=== PATIENT | female | born 1980 | race Caucasian/White ===

== ENCOUNTER 2017-03-22 01:35 | Emergency (ER) | payer MEDICAID, OTHER ==
[~2017-03-22] VITALS: Ht 162.6 cm; Wt 65.0 kg
[~2017-03-22 01:35] MED LIST: ACET500C5 PO; CEPH-443 PO; HYDR-3498 PO; IBUP-1542 PO
[2017-03-22 01:44] VITALS: Ht 162.6 cm; Wt 65.0 kg
[2017-03-22 02:09] LABS: URINE BLOOD (Dip) POC Trace-intact (NEGATIVE)
[2017-03-22] MEDS ORDERED: LORAZEPAM 2 MG INJ IV ONE (02:30)
[2017-03-22 02:42] LABS: ADD SCAN DIFF NO
[2017-03-22 02:46] LABS: BASOPHILS % 0.4 % (0.0-2.0); EOSINOPHILS # 0.1 10^3/ul (0.0-0.5); EOSINOPHILS % 1.1 % (0.0-7.0); HEMATOCRIT 33.2 % (37.0-47.0); HEMOGLOBIN 10.4 g/dl (12.0-16.0); LYMPHOCYTES # 2.5 10^3/ul (0.8-2.9); LYMPHOCYTES % 31.4 % (15.0-51.0); MEAN CORPUSCULAR HEMOGLOBIN 24.5 pg (29.0-33.0); MEAN CORPUSCULAR HGB CONC 31.3 g/dl (32.0-37.0); MEAN CORPUSCULAR VOLUME 78.1 fl (82.0-101.0); MEAN PLATELET VOLUME 11.2 fl (7.4-10.4); MONOCYTE # 0.5 10^3/ul (0.3-0.9); MONOCYTES % 6.7 % (0.0-11.0); NEUTROPHIL # 4.8 10^3/ul (1.6-7.5); NEUTROPHILS % 60.2 % (39.0-77.0); PLATELET COUNT 266 10^3/UL (140-415); RED BLOOD COUNT 4.25 10^6/ul (4.20-5.40); RED CELL DISTRIBUTION WIDTH 16.4 % (11.5-14.5)
[2017-03-22 02:59] LABS: INR 0.96; PARTIAL THROMBOPLASTIN TIME 25.9 Sec (25.0-35.0); PROTIME 12.8 Sec (12.2-14.2)
--- NOTE | 2017-03-22 03:00 | RADRPT ---
PROCEDURE: CHEST - 1 VIEW CLINICAL INDICATION: 36-year-old female with chest pain. TECHNIQUE: A single frontal AP portable view of the chest was performed. The images were reviewed on a PACS workstation. COMPARISON: None. FINDINGS: The cardiomediastinal silhouette has a normal appearance. There is no evidence for an infiltrate. There is no evidence for congestive heart failure. There is no evidence for pneumothorax. The osseou s structures are intact. Noted are partially fused left fourth and fifth ribs. IMPRESSION: 1. No evidence for active cardiopulmonary disease. 2. 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 .Bhanu Daly MD, MD Date Time Electronically viewed and signed by .Bhanu Daly MD, on 03/22/2017 03:00 .[place]
[2017-03-22 03:17] LABS: ALANINE AMINOTRANSFERASE 31 IU/L (13-69); ALBUMIN 4.7 g/dl (3.3-4.9); ALBUMIN/GLOBULIN RATIO 1.88; ALKALINE PHOSPHATASE 91 IU/L (42-121); ANION GAP 12 (8-16); ASPARTATE AMINO TRANSFERASE 19 IU/L (15-46); BLOOD UREA NITROGEN 15 mg/dl (7-20); CARBON DIOXIDE 24 mmol/L (21-31); CHLORIDE 110 mmol/L (97-110); CREATININE 0.64 mg/dl (0.44-1.00); GLUCOSE 124 mg/dl (70-220); POTASSIUM 3.3 mmol/L (3.5-5.1); SODIUM 143 mmol/L (135-144); TOTAL PROTEIN 7.2 g/dl (6.1-8.1)
[2017-03-22 03:28] LABS: B-TYPE NATRIURETIC PEPTIDE 42 PG/ML (0-125)
[2017-03-22 03:34] LABS: ADD UMIC YES; UR ASCORBIC ACID NEGATIVE (NEGATIVE); UR BACTERIA FEW /HPF (NONE SEEN); UR BILIRUBIN (Dip) NEGATIVE (NEGATIVE); UR BLOOD (Dip) NEGATIVE (NEGATIVE); UR CLARITY SLIGHTLY CLOUDY (CLEAR); UR COLOR YELLOW (YELLOW); UR GLUCOSE (Dip) NEGATIVE (NEGATIVE); UR KETONES (Dip) NEGATIVE (NEGATIVE); UR LEUKOCYTE ESTERASE (Dip) 2+ Leu/ul (NEGATIVE); UR MUCUS FEW /HPF (NONE SEEN); UR NITRITE (Dip) NEGATIVE (NEGATIVE); UR RBC 1 /HPF (0-5); UR SPECIFIC GRAVITY (Dip) 1.028 (1.003-1.030); UR SQUAMOUS EPITHELIAL CELL FEW /HPF (FEW); UR TOTAL PROTEIN (Dip) NEGATIVE (NEGATIVE); UR UROBILINOGEN (Dip) NEGATIVE (NEGATIVE)
[2017-03-22 03:43] LABS: TROPONIN-I < 0.012 ng/ml (0.00-0.12)
--- NOTE | 2017-03-22 03:46 | ERD ---
ER Documentation Chief Complaint Date/Time DATE: 03/22/17 TIME: 03:45 Chief Complaint chest pain since 3 hours ago HPI 36-year-old female with chest pain started 3 hours ago. Past pain is left- sided and reproducible. No fevers no chills. No nausea no vomiting. No other current complaints. ROS All systems reviewed and are negative except as per history of present illness. Medications Home Meds Discontinued Reported Medications [none] Unknown Strength No Conflict Check 09/23/15 Discontinued Scripts Acetaminophen* (Tylophen*) 500 Mg Capsule, 1 CAP PO Q6H Y for PAIN AND OR ELEVATED TEMP, #20 CAP Prov:MARCUS MONTELONGO [employer]IA MARKETING DIRECTOR 01/13/16 Cephalexin* (Keflex*) 500 Mg Capsule, 500 MG PO QID for 10 Days, CAP Prov:MARCUS MONTELONGO MEDIA MARKETING DIRECTOR 01/13/16 Hydrocodone Bit-Acetaminophen* ([place]*) 5-325 Mg Tab, 1 TAB PO Q6 Y for PAIN, # 20 TAB Prov:MARCUS MONTELONGO MEDIA MARKETING DIRECTOR 09/23/15 Ibuprofen* (Ibuprofen*) 600 Mg Tablet, 600 MG PO Q6H Y for pa, #30 TAB Prov:MARCUS MONTELONGO NP 09/23/15 Allergies Allergies: Coded Allergies: No Known Allergy (Unverified , 03/22/17) PMhx/Soc Medical and Surgical Hx: pt denies Medical Hx History of Surgery: Yes (heart surgery 35 years ago) Anesthesia Reaction: No Hx Neurological Disorder: No Hx Respiratory Disorders: No Hx Cardiac Disorders: No Hx Psychiatric Problems: No Hx Miscellaneous Medical Probl: No Hx Alcohol Use: No Hx Substance Use: No Hx Tobacco Use: No Smoking Status: Never smoker Physical Exam Vitals Vital Signs Date Time Temp Pulse Resp B/P Pulse Ox O2 Delivery O2 Flow Rate FiO2 03/22/17 01:44 98.3 88 20 128/66 98 Physical Exam Const: [] Head: Atraumatic Eyes: Normal Conjunctiva ENT: Normal External Ears, Nose and Mouth. Neck: Full range of motion..~ No meningismus. Resp: Clear to auscultation bilaterally Cardio: Regular rate and rhythm, no murmurs Abd: Soft, non tender, non distended. Normal bowel sounds Skin: No petechiae or rashes Back: No midline or flank tenderness Ext: No cyanosis, or edema Neur: Awake and alert Psych: Normal Mood and Affect Result Diagram: 03/22/1722403/22/17 022 Results 24 hrs Laboratory Tests Test 03/22/17 02:12 03/22/17 02:25 03/22/17 02:50 Bedside Urine pH (LAB) 5.5 Bedside Urine Protein (LAB) Negative Bedside Urine Glucose (UA) Negative Bedside Urine Ketones (LAB) Negative Bedside Urine Blood Trace-intact Bedside Urine Nitrite (LAB) Negative Bedside Urine Leukocyte Esterase (L Trace White Blood Count 8.010^3/ul Red Blood Count 4.2510^6/ul Hemoglobin 10.4g/dl Hematocrit 33.2% Mean Corpuscular Volume 78.1fl Mean Corpuscular Hemoglobin 24.5pg Mean Corpuscular Hemoglobin Concent 31.3g/dl Red Cell Distribution Width 16.4% Platelet Count 21054^3/UL Mean Platelet Volume 11.2fl Neutrophils % 60.2% Lymphocytes % 31.4% Monocytes % 6.7% Eosinophils % 1.1% Basophils % 0.4% Nucleated Red Blood Cells % 0.0/100WBC Neutrophils # 4.810^3/ul Lymphocytes # 2.510^3/ul Monocytes # 0.510^3/ul Eosinophils # 0.110^3/ul Basophils # 0.010^3/ul Nucleated Red Blood Cells # 0.010^3/ul Prothrombin Time 12.8Sec Prothrombin Time Ratio 1.0 INR International Normalized Ratio 0.96 Activated Partial Thromboplast Time 25.9Sec Sodium Level 143mmol/L Potassium Level 3.3mmol/L Chloride Level 110mmol/L Carbon Dioxide Level 24mmol/L Anion Gap 12 Blood Urea Nitrogen 15mg/dl Creatinine 0.64mg/dl Glucose Level 124mg/dl Calcium Level 9.0mg/dl Total Bilirubin 0.0mg/dl Direct Bilirubin 0.00mg/dl Indirect Bilirubin 0.0mg/dl Aspartate Amino Transf (AST/SGOT) 19IU/L Alanine Aminotransferase (ALT/SGPT) 31IU/L Alkaline Phosphatase 91IU/L Troponin I < 0.012ng/ml B-Type Natriuretic Peptide 42PG/ML Total Protein 7.2g/dl Albumin 4.7g/dl Globulin 2.50g/dl Albumin/Globulin Ratio 1.88 Urine Color YELLOW Urine Clarity SLIGHTLY CLOUDY Urine pH 5.0 Urine Specific [place] 1.028 Urine Ketones NEGATIVEmg/dL Urine Nitrite NEGATIVEmg/dL Urine Bilirubin NEGATIVEmg/dL Urine Urobilinogen NEGATIVEmg/dL Urine Leukocyte Esterase 2+Himanshu/ul Urine Microscopic RBC 1/HPF Urine Microscopic WBC 20/HPF Urine Squamous Epithelial Cells FEW/HPF Urine Calcium Oxalate Crystals MANY/HPF Urine Bacteria FEW/HPF Urine Mucus FEW/HPF Urine Hemoglobin NEGATIVEmg/dL Urine Glucose NEGATIVEmg/dL Urine Total Protein NEGATIVEmg/dl Current Medications Medications (Trade) Dose Ordered Sig/Dexter Route PRN Reason Start Time Stop Time Status Last Admin Dose Admin Lorazepam (Ativan) 1 mg ONCE ONCE IV 03/22/17 02:30 03/22/17 02:31 DC Procedures/MDM EKG: Rate/Rhythm: [Normal Sinus Rhythm] QRS, ST, T-waves: [No changes consistent w/ acute ischemia] Impression: [No evidence of ischemia or arrhythmia] Chest X-ray 1V Interpreted by me: Soft Tissue: No acute abnormalities Bones: No acute abnormalities Mediastinum/Cardiac Silhouette/Lungs: [No acute abnormalities] Patient's thoracic symptoms have stabilized while in the department and are stable for outpatient follow up. Exam and work up not consistent w/ ischemia, arrhythmia, PE or dissection. Departure Diagnosis: Primary Impression: Chest pain Chest pain type: unspecified Qualified Code: R07.9 - Chest pain, unspecified type Condition: Stable KAREN LEO Mar 22, 2017 03:46
[2017-03-22] MEDS ORDERED: NAPR-260 PO (03:47)
[2017-03-22 04:05] VITALS: BP 124/67; PULSE 75; RESP 16
== END 2017-03-22 04:10 | disposition home or self-care (01) ==
LOC: E/R 01:35
DX: R07.9 Chest pain, unspecified (principal)
CPT/HCPCS: 36415; 71010; 80053; 81001; 83880; 84484; 85025; 85610; 85730; 93005; Z7502; 81003; J2060

== ENCOUNTER 2017-03-31 05:15 | Day surgery (SDC) | payer MEDICAID, OTHER ==
[2017-03-31] VITALS (12 sets, daily range): BP systolic 108–138; BP diastolic 58–82; PULSE 56–77; RESP 18–30; Ht 154.9 cm; Wt 64.5 kg
[~2017-03-31] VITALS: Ht 154.9 cm; Wt 64.5 kg
[~2017-03-31 05:15] MED LIST changes: -ACET500C5 PO; -CEPH-443 PO; -HYDR-3498 PO; -IBUP-1542 PO; +NAPR-260 PO
[2017-03-31] MEDS ORDERED: LACTATED RINGER'S 1,000 ML IV* SCH (06:00)
[2017-03-31] MEDS ORDERED: CEFAZOLIN 2 GM/50 ML (PMX) 50 ML IVPB ONE (06:00)
[2017-03-31 06:23] LABS: ADD SCAN DIFF NO
[2017-03-31 06:37] LABS: BASOPHILS % 0.5 % (0.0-2.0); EOSINOPHILS # 0.1 10^3/ul (0.0-0.5); EOSINOPHILS % 1.7 % (0.0-7.0); HEMATOCRIT 34.8 % (37.0-47.0); HEMOGLOBIN 10.7 g/dl (12.0-16.0); LYMPHOCYTES % 30.5 % (15.0-51.0); MEAN CORPUSCULAR HEMOGLOBIN 24.3 pg (29.0-33.0); MEAN CORPUSCULAR HGB CONC 30.7 g/dl (32.0-37.0); MEAN CORPUSCULAR VOLUME 79.1 fl (82.0-101.0); MEAN PLATELET VOLUME 11.1 fl (7.4-10.4); MONOCYTE # 0.4 10^3/ul (0.3-0.9); MONOCYTES % 5.8 % (0.0-11.0); NEUTROPHIL # 3.9 10^3/ul (1.6-7.5); PLATELET COUNT 252 10^3/UL (140-415); RED CELL DISTRIBUTION WIDTH 16.3 % (11.5-14.5); WHITE BLOOD COUNT 6.4 10^3/ul (4.8-10.8)
[2017-03-31 06:39] LABS: INR 0.94; PROTIME 12.6 Sec (12.2-14.2)
[2017-03-31] MEDS ORDERED: BUPIVACAINE 0.25%/EPI (SDV) 30 ML INJ ONE (06:46)
--- NOTE | 2017-03-31 07:32 | HP ---
Date/Time of Note Date/Time of Note DATE: 03/31/17 TIME: 07:30 Assessment/Plan VTE Prophylaxis VTE Prophylaxis Intervention: ambulation, SCD's Lines/Catheters IV Catheter Type (from Nrsg): Peripheral IV HPI/ROS Admit Date/Time Admit Date/Time patient is requesting permanent sterilization. Risks and benefits and indications and alternatives discussed patients. risks including but not limited to onfection, bleeding, damage to other organs such as intestines or bladder, blood transfusion and possibilty of failure of procedure discussed with patient. I also explained to her this procedures is permanent and not reversible. other reversible contraceptive methods also discussed with patient. patint also told that our plan is Laparoscopic BTL, but some times the surgery may be converted to Exploratory Laparotomy. Informed consent obtained Allergies: NKDA Medications: none ROS: Significant as above Review of Systems: Constitutional: Denies nausea, vomiting, Fever, Chills, weight loss Eyes: denies pain, discharge or redness Nose: denies pain or bleeding Respiratory: denies SOB, cough or wheezing Cardiovascular: denies chest pain, palpitations or lightheadedness Gastrointestinal: Denies nausea, vomiting, blood in stool Genitourinary: Denies hematuria, dysuria, or flank pain Musculoskeletal: Denies joint pain or swelling Skin: Denies rash, erythema or laceration Neuro: Denies confusion, seizure, headache or diziness Endocrine: Denies excessive urination or drinking Past Medical History: none Past Surgical History: heart surgery Review of Systems: Constitutional: Denies nausea, vomiting, Fever, Chills, weight loss Eyes: denies pain, discharge or redness Nose: denies pain or bleeding Respiratory: denies SOB, cough or wheezing Cardiovascular: denies chest pain, palpitations or lightheadedness Gastrointestinal: Denies nausea, vomiting, blood in stool Genitourinary: Denies hematuria, dysuria, or flank pain Musculoskeletal: Denies joint pain or swelling Skin: Denies rash, erythema or laceration Neuro: Denies confusion, seizure, headache or diziness Endocrine: Denies excessive urination or drinking Physical Exam: Afebrile, VSS NAD A&O Heart: RRR Lung: CTA B Abdomen: Soft, Not tender Extremities: No edema Assessment: Patients desires permanent sterilization Plan: Laparoscopic BTL, Possible Exploratory Laparotomy. PMH/Family/Social Social History Smoking Status: Never smoker Exam/Review of Systems Vital Signs Vitals Vital Signs Date Time Temp Pulse Resp B/P Pulse Ox O2 Delivery O2 Flow Rate FiO2 03/31/17 06:31 97.9 77 18 136/82 100 Room Air Labs Result Diagram: 03/31/17 0600 Medications Medications Current Medications Lactated Ringer's (Lr) 1,000 ml @ 125 mls/hr Q8H IV* ; Start 03/31/17 at 06:00; Stop 03/31/17 at 13:59 MIRACLE TORRE MD Mar 31, 2017 07:32
[2017-03-31] MEDS ORDERED: FENTAnyl 50 MCG/ML VIAL ONE (07:38)
[2017-03-31] MEDS ORDERED: FUROSEMIDE 20 MG INJ ONE (07:38)
[2017-03-31] MEDS ORDERED: GLYCOPYRROLATE 0.4 MG INJ ONE (07:48)
[2017-03-31] MEDS ORDERED: NEOSTIGMINE 3 MG/3 ML SYRINGE ONE (07:48)
[2017-03-31] MEDS ORDERED: ROPIVACAINE 0.5 % 30 ML VIAL ONE (07:48)
[2017-03-31] MEDS ORDERED: ROCURONIUM 50 MG INJ ONE (07:48)
[2017-03-31] MEDS ORDERED: CEFAZOLIN 1 GM INJ ONE (07:48)
[2017-03-31] MEDS ORDERED: SUCCINYLCHOLINE CHLORIDE 100 MG/5 ML SYG IV ONE (07:48)
[2017-03-31] MEDS ORDERED: PROPOFOL 20 ML ONE (07:48)
[2017-03-31] MEDS ORDERED: LIDOCAINE 2% (SDV) 5 ML INJ ONE (07:48)
[2017-03-31] MEDS ORDERED: BUPIVACAINE 0.5% 30 ML VIAL INJ ONE (08:02)
[2017-03-31 08:08] LABS: PARTIAL THROMBOPLASTIN TIME 24.9 Sec (25.0-35.0)
--- NOTE | 2017-03-31 08:24 | OPR ---
Date/Time of Note Date/Time of Note DATE: 03/31/17 TIME: 08:22 Operative Report Free Text/Dictation DATE OF OPERATION: PREOPERATIVE DIAGNOSIS: Patient desires permanent sterilization. She declined Essure. She desires laparoscopic tubal fulguration. POSTOPERATIVE DIAGNOSIS: Patient desires permanent sterilization. She declined Essure. She desires laparoscopic tubal fulguration. OPERATION PERFORMED: Laparoscopic fulguration and transection of bilateral tubes. SURGEON: Radha Arthur MD ESTIMATED BLOOD LOSS: Minimal. COMPLICATIONS: None. FINDINGS: Normal tubes, ovaries bilaterally. Normal uterus. CONSENT: Please see my preop H and P consent in the office for the consent process. DESCRIPTION OF PROCEDURE: She was taken to operating room and general anesthesia was induced. She was prepped and draped in the usual sterile fashion in dorsal lithotomy position. Surgical time-out was done. Anterior lip of the cervix was grasped using a single-tooth tenaculum, and a HUMI was inserted in normal fashion. The tenaculum was removed. There was no bleeding from the cervix. The patient already had a Mayers catheter as well. Gloves were changed. A 5 mm incision was developed inside the umbilicus. A blunt trocar was inserted in the normal fashion. Intraperitoneal position was confirmed using the laparoscope. Pneumoperitoneum was obtained. The patient was placed in Trendelenburg position. A second trocar was inserted under direct visualization of the laparoscope at the pubic hairline in the midline. A 5 cm mid ampullary region of the right tube was coagulated. Complete desiccation of the entire diameter of tube was visualized. The middle of the coagulated portion was cut. There was no bleeding. Same procedure was done on the contralateral side. All instruments removed under direct visualization of the laparoscope after pneumoperitoneum was released. There was no bleeding. Skin closed using 4-0 Monocryl. Then 10 mL 0.25% Marcaine with epinephrine was injected at the incision sites. HUMI was removed. There was no bleeding from the vagina. Patient tolerated the procedure well. Anesthesia: general Estimated Blood Loss: none Complications: None Pt Condition Post Procedure: stable Disposition: PACU RADHA ARTHUR MD Mar 31, 2017 08:24
[2017-03-31] MEDS ORDERED: METOCLOPRAMIDE 10 MG INJ IV PRN (08:30)
[2017-03-31] MEDS ORDERED: LABETALOL HCL 20MG INJ IV PRN (08:30)
[2017-03-31] MEDS ORDERED: DIPHENHYDRAMINE 50 MG INJ IV PRN (08:30)
[2017-03-31] MEDS ORDERED: FENTAnyl 50 MCG/ML VIAL IV PRN ×2 (08:30)
[2017-03-31] MEDS ORDERED: MEPERIDINE 25 MG INJ IV PRN (08:30)
[2017-03-31] MEDS ORDERED: ONDANSETRON 4 MG INJ IV PRN (08:30)
[2017-03-31] MEDS ORDERED: HYDROmorphONE (0.2 MG/ML) 10ML SYG IV PRN ×2 (08:30)
[2017-03-31] MEDS ORDERED: ALBUTEROL 0.083% (NEB) 2.5 MG/3 ML AMP HHN ONE (08:30)
[2017-03-31] MEDS: HYDROmorphONE (0.2 MG/ML) 10ML SYG IV PRN ×2 (08:59→09:09)
== END 2017-03-31 11:40 | disposition home or self-care (01) ==
LOC: SDS 05:15
PROVIDERS: ATTEND Specialist
DX: Z30.2 Encounter for sterilization (principal); E66.9 Obesity, unspecified; Z68.26 Body mass index [BMI] 26.0-26.9, adult
CPT/HCPCS: 58670; 85025; 85610; 85730; J0690; J1170; J2405; J2710; J2795; J3010; J7999; Z7512; Z7610; J1940